=== PATIENT | male | born 2000 | race African-American/Black ===

== ENCOUNTER 2019-03-20 01:16 | Emergency (ER) | payer MEDICAID ==
[~2019-03-20] VITALS: Ht 188 cm; Wt 73.9 kg
[2019-03-20 01:18] VITALS: Ht 188 cm; Wt 73.9 kg
[2019-03-20 02:37] VITALS: BP 112/67
== END 2019-03-20 02:37 | disposition home or self-care (01) ==
LOC: ED 01:16
DX: R07.89 Other chest pain (principal); R00.2 Palpitations; F12.90 Cannabis use, unspecified, uncomplicated; Z88.0 Allergy status to penicillin

== ENCOUNTER 2019-03-29 15:29 | Emergency (ER) | payer MEDICAID ==
[~2019-03-29] VITALS: Ht 188 cm; Wt 72.1 kg
[2019-03-29 15:34] VITALS: Ht 188 cm; Wt 72.1 kg
[2019-03-29 16:41] LABS: BASOPHIL % 0.7 % (0-2); PLATELET COUNT 225 x10^3mcL (130-400); RED CELL DISTRIBUTION WIDTH 13.2 % (11.5-14.5)
[2019-03-29 17:03] LABS: UA SPECIFIC GRAVITY 1.025 (1.005-1.035); microscopic required? YES; urine erythrocyte TRACE (NEGATIVE)
[2019-03-29 17:07] LABS: T3 TOTAL 0.81 ng/mL
[2019-03-29 17:20] LABS: AMPHETAMINE QUAL UR NONE DETECTED (See below)
[2019-03-29 17:51] LABS: CALCIUM 9.6 mg/dL (8.5-10.1); CARBON DIOXIDE 24.4 mmol/L (21-32); CHLORIDE SERUM 105 mmol/L (98-107); CREATININE SERUM 1.1 mg/dL (0.7-1.3); GFR1 > 60 mL/min; GLUCOSE SERUM 78 mg/dL (74-106); POTASSIUM SERUM 4.5 mmol/L (3.5-5.1); SODIUM SERUM 141 mmol/L (136-145)
[2019-03-29 17:55] LABS: ALBUMIN 4.1 g/dL (3.4-5.0); ALKALINE PHOSPHATASE 79 U/L (46-116); ALT/SGPT 15 U/L (16-63); AST/SGOT 11 U/L (15-37); BILIRUBIN TOTAL 0.74 mg/dL (0.20-1.00); CHOLESTEROL 138 mg/dL (<200); CHOLESTEROL/HDL RATIO 2.5; HDL CHOLESTEROL 55 mg/dL (40-60); LIPASE 39 IU/L (73-393); TOTAL PROTEIN, SERUM 7.5 g/dL (6.4-8.2); TRIGLYCERIDES 50 mg/dL (<150)
[2019-03-29 18:03] LABS: FREE T4 1.1 ng/dL (0.76-1.46); T4(THYROXINE) 5.3 ug/dL (4.7-13.3)
[2019-03-29 18:18] VITALS: BP 127/62
== END 2019-03-29 18:18 | disposition home or self-care (01) ==
LOC: ED 15:29
PROVIDERS: Specialist
DX: R07.89 Other chest pain (principal); R53.83 Other fatigue; R00.2 Palpitations; Z88.0 Allergy status to penicillin
CPT/HCPCS: 36415; 83880; 84439; Q0092